=== PATIENT | male | born 1970 | race Two or more races ===

== ENCOUNTER 2017-05-14 18:43 | Emergency (ER) | payer MEDICAID, OTHER ==
[~2017-05-14] VITALS: Ht 177.8 cm; Wt 95.3 kg
[2017-05-14 18:45] VITALS: BP 133/79
--- NOTE | 2017-05-14 18:45 | NUR ---
PT BB FROM HOME COMPLAINING OF CHEST PAIN THAT STARTED 2 HRS AGO. PT STS THAT BOTH OF HIS ARMS AND HANDS FEELS NUMB. +ALCOHOL SMELL, PT SAID HE HAD WHITE [employer]INE [employer] S[employer]EN [employer]. PT ASSISTED TO ED BED 12. GOWNED AND PLACED ON CONT MONITORING. ALL NEEDS ARE ATTENDED, KEPT COMFORTABLE. DR. EDGAR AT BEDSIDE FOR EVALUATION
--- NOTE | 2017-05-14 19:08 | NUR ---
REPORT RECEIVED FROM TITA MENDOZA FOR [facility].
[2017-05-14 19:23] LABS: CALCIUM, SERUM 9.1 mg/dL (8.5-10.1); CARBON DIOXIDE 26 mmol/L (21-32); CHLORIDE 100 mmol/L (98-107); CREATININE 0.8 mg/dL (0.6-1.3); GLUCOSE 93 mg/dL (74-106); POTASSIUM 4.2 mmol/L (3.5-5.1); SODIUM SERUM 138 mmol/L (136-145); UREA NITROGEN, BLOOD 11 mg/dL (7-18)
[2017-05-14 19:29] LABS: BASOPHILS # (AUTO) 0.1 /CMM (0.0-0.2); BASOPHILS % (AUTO) 0.8 % (0.0-2.0); EOSINOPHILS % (AUTO) 0.9 % (0.0-6.0); HEMATOCRIT 46 % (39-51); HEMOGLOBIN 15.8 g/dL (13.5-17.5); LYMPHOCYTES % (AUTO) 39.7 % (20.0-44.0); MEAN CORPUSCULAR HGB CONC 34 g/dl (31.0-36.0); MEAN CORPUSCULAR VOLUME 95 fL (80-96); MONOCYTES # (AUTO) 0.6 /CMM (0.1-1.30); MONOCYTES % (AUTO) 5.7 % (2.0-12.0); NEUTROPHILS # (AUTO) 5.4 /CMM (1.8-8.9); NEUTROPHILS % (AUTO) 52.9 % (43.0-81.0); PLATELET COUNT (AUTO) 331 /CMM (150-450); RDW COEFFICIENT OF VARIATION 13.3 (11.5-15.0); WHITE BLOOD COUNT (AUTO) 10.2 K/uL (4.3-11.0)
[2017-05-14 19:32] LABS: TROPONIN I < 0.017 ng/mL (0.00-0.056)
[2017-05-14 19:48] LABS: INR 0.91 (0.87-1.13)
--- NOTE | 2017-05-14 20:04 | NUR ---
PT DEMANDING IV BE TAKEN OUT SO HE CAN LEAVE. PT NOTED VERY AGITATED. MADE AWARE.
--- NOTE | 2017-05-14 20:06 | NUR ---
IV removed. Catheter intact and site benign. Pressure and 4x4 applied to site. No bleeding noted.
--- NOTE | 2017-05-14 20:07 | NUR ---
ADI ZALDIVAR FROM [facility]. MADE AWARE.
== END 2017-05-14 20:11 | disposition left against medical advice (07) ==
LOC: ER 18:52
DX: R07.89 Other chest pain (principal); F10.129 Alcohol abuse with intoxication, unspecified; F17.200 Nicotine dependence, unspecified, uncomplicated; Z96.641 Presence of right artificial hip joint
CPT/HCPCS: 36415; 71045-TC; 80048-TC; 84484-TC; 85025-TC; 85730-TC; A4606; G0480; Z7610